=== PATIENT | male | born 1955 | race Caucasian/White ===

== ENCOUNTER 2017-08-08 12:48 | Outpatient (RCR) | payer OTHER ==
[~2017-08-08 12:48] MED LIST: FLEXERIL 1010 MG/TAB PO; GLUCOPHAGE500 MG/TAB PO; GLUCOTROL 5M5 MG/TAB; LEVEMIR100 U/ML SC; NORCO 325 MG-51 TAB PO; PRINIVIL2.5 MG
== END 2017-10-28 09:51 | disposition home or self-care (01) ==
LOC: WSOH 12:48
DX: M22.2X1 Patellofemoral disorders, right knee (principal); W00.0XXA Fall on same level due to ice and snow, initial encounter; Y92.481 Parking lot as the place of occurrence of the external cause; Y99.0 Civilian activity done for income or pay; Z79.84 Long term (current) use of oral hypoglycemic drugs

== ENCOUNTER → 2018-12-20 | Outpatient (CLI) | payer BC | LOC: COL.RAD 10:21 | DX: N43.3 Hydrocele, unspecified (principal); I86.1 Scrotal varices ==